=== PATIENT | female | born 1975 | race African-American/Black ===

== ENCOUNTER → 2019-02-01 | Outpatient (CLI) | payer MEDICAID ==
--- NOTE | 2019-02-01 11:00 | WOMENS IMAGING REPORT ---
EXAM DESCRIPTION: BILAT SCREENING MAMMO W/CAD COMPLETED DATE/TIME: 02/01/2019 7:42 am REASON FOR STUDY: ROUTINE BILATERAL SCREENING;Z12.31 Z12.31 ENCNTR SCREEN MAMMOGRAM FOR MALIGNANT N EOPLASM OF MAKENNA COMPARISON: New baseline study EXAM PARAMETERS: Standard craniocaudal and mediolateral oblique views of each breast recorded using digital acquisition. Read with the assistance of CAD. .[facility] - [employer] Restoration Technician Version 9.2 LIMITATIONS: None. FINDINGS: No suspicious masses, suspicious calcifications or architectural distortion. No areas of s uspicion. IMPRESSION: Negative MAMMOGRAM. BIRADS 1 BREAST DENSITY: c. The breasts are heterogeneously dense, which may obscure small masses. BIRAD: ASSESSMENT: 1 NEGATIVE RECOMMENDATION: ROUTINE SCREENING Please consider bilateral screening tomosynthesis in January 2020 given heterogeneously dense tissue celeste aterally COMMENT: The patient has been notified of the results by letter per MQSA requirements. Additional no tification policies are in place for contacting patient with suspicious or incomplete findings. Quality ID #225: The [employer] recommends an annual screening mammogram for women aged 40 years or over. This facility utilizes a reminder system to ensure that all patients receive reminder letters, and/or direct phone calls for appointments. This includes reminders for routine scr eening mammograms, diagnostic mammograms, or other Breast Imaging Interventions when appropriate. Th is patient will be placed in the appropriate reminder system. TECHNICAL DOCUMENTATION: FINDING NUMBER: (1) ASSESSMENT: (1) JOB ID: [id number] [employer]- All Rights Reserved Reading location - IP/workstation name: [email or web address]
== END ==
LOC: WI 07:26
PROVIDERS: ATTEND Family Medicine
DX: Z12.31 Encounter for screening mammogram for malignant neoplasm of breast (principal)
CPT/HCPCS: 77067

== ENCOUNTER → 2020-06-22 | Outpatient (CLI) | payer MEDICAID ==
--- NOTE | 2020-06-22 10:33 | WOMENS IMAGING REPORT ---
EXAM DESCRIPTION: 3D SCREENING MAMMO BILAT IMAGES COMPLETED DATE/TIME: 06/22/2020 7:17 am REASON FOR STUDY: ROUTINE BILATERAL SCREENING;Z12.31 Z12.31 ENCNTR SCREEN MAMMOGRAM FOR MALIGNANT N EOPLASM OF MAKENNA COMPARISON: 2018. EXAM PARAMETERS: Standard craniocaudal and mediolateral oblique views of each breast recorded using digital acquisition and breast tomosynthesis. Read with the assistance of CAD. .[facility] - [employer] Unit Tester Version 9.2 LIMITATIONS: None. FINDINGS: RIGHT BREAST MASSES: Potential mass in the lateral breast lying close to 5 cm from the nipple. This lies the lowe r outer quadrant. CALCIFICATIONS: No new or suspicious calcifications. ARCHITECTURAL DISTORTION: None. ASYMMETRY: None noted. OTHER: No other significant findings. LEFT BREAST MASSES: No suspicious masses. CALCIFICATIONS: No new or suspicious calcifications. ARCHITECTURAL DISTORTION: None. ASYMMETRY: None noted. OTHER: No other significant findings. IMPRESSION: Suspicious for right breast mass. 0 Incomplete: Needs Additional Imaging Evaluation and/or prior Mammograms for Comparison. BREAST DENSITY: c. The breasts are heterogeneously dense, which may obscure small masses. BIRAD: ASSESSMENT: 0 Incomplete: Needs Additional Imaging Evaluation and/or prior Mammograms for C omparison. RECOMMENDATION: RECOMMENDED FOLLOW-UP: Spot compression diagnostic mammography and ultrasound. The patient will be contacted for additional imaging. COMMENT: The patient has been notified of the results by letter per MQSA requirements. Additional no tification policies are in place for contacting patient with suspicious or incomplete findings. Quality ID #225: The [employer] recommends an annual screening mammogram for women aged 40 years or over. This facility utilizes a reminder system to ensure that all patients receive reminder letters, and/or direct phone calls for appointments. This includes reminders for routine scr eening mammograms, diagnostic mammograms, or other Breast Imaging Interventions when appropriate. Th is patient will be placed in the appropriate reminder system. TECHNICAL DOCUMENTATION: FINDING NUMBER: (1) ASSESSMENT: (1) JOB ID: [id number] 2010 [employer]- All Rights Reserved Reading location - IP/workstation name: [email or web address]
--- OUTSIDE RECORDS SUMMARY | 2020-06-25 09:32 | XMS REPORT ---
:1975 Author [facility] [place] [address] [place] [address] Care Team Providers Name Role Phone Bundle Attending Clinician Unavailable Toño Attending Clinician Unavailable Gladis Attending Clinician Unavailable Lauren Attending Clinician Unavailable Allergies, Adverse Reactions, Alerts This patient has no known allergies or adverse reactions. Medications This patient has no known medications. Problems This patient has no known problems. Procedures Procedure Date / Time Performed Performing Clinician Devic e OFFICE/OUTPATIENT VISIT EST 2019-12-08 08:15:00 OFFICE/OUTPATIENT VISIT EST 2019-04-22 16:15:00 OFFICE/OUTPATIENT VISIT EST 2019-03-28 13:30:00 OFFICE/OUTPATIENT VISIT EST 2019-01-12 08:00:00 OFFICE/OUTPATIENT VISIT EST 2019-01-07 14:50:00 SELF PAY NEW OV 2018-06-08 08:30:00 Results Test Description Test Time Test Comments Text Results Atomic Results Result Comments Hemoglobin A1C\S\ 2019-04-22 16:15:00 Test Item Value Reference Range Comments HgbA1C, Fingerstick (test code = 4548-4) 7.2 % 4-5.6 BV/VAGINITIS PANEL DNA [id number] 00:00:00SEE NOTETHINPREP TIS PAP AND HPV mRNA E6/E7, CHLAMYDIA/N.[id number] 00:00:00 Test Item Value Reference Range Comments CLINICAL INFORMATION: (test None given code = 47768677) CHLAMYDIA TRACHOMATIS RNA, NOT DETECTED NOT DETECTED TMA, UROGENITAL (test code = 36325549) SOURCE: (test code = Cervix, Endocervix 16773384) NEISSERIA GONORRHOEAE RNA, NOT DETECTED NOT DETECTED TMA, UROGENITAL (test code = 07957438) PREV. BX: (test code = NONE GIVEN 00149808) INTERPRETATION/RESULT: (test Negative for intraepithelial code = 92797630) lesion or malignancy. COMMENT: (test code = This Pap test has been evaluated 22248640) with computer assisted technology. LMP: (test code = 00391744) 20190305 PREV. PAP: (test code = NONE GIVEN 38865922) HPV mRNA E6/E7 (test code = Not Detected Not Detected 74099681) Hemoglobin A1C\S\2019-01-12 08:00:00 Test Item Value Reference Range Comments HgbA1C, Fingerstick (test code = 4548-4) 8.4 % 4-5.6 URINE CULTURE\S\[id number] 15:10:00 Test Item Value Reference Range Comments GROUP B BETA STREPTOCOCCUS (test code = BTSB) [id number] 09:22:000.76LIPID PANEL WITH REFLEX TO DIRECT [id number] 09:22:00 Test Item Value Reference Range Comments LDL-CHOLESTEROL (test code = 59727056) 66 mg/dL (calc) HDL CHOLESTEROL (test code = 88910414) 37 mg/dL >50 CHOLESTEROL, TOTAL (test code = 19393135) 121 mg/dL <200 NON HDL CHOLESTEROL (test code = 91017127) 84 mg/dL (calc) <130 TRIGLYCERIDES (test code = 74200691) 95 mg/dL <150 CHOL/HDLC RATIO (test code = 53606093) 3.3 (calc) <5.0 CBC (INCLUDES DIFF/PLT)2018-06-08 09:22:00 Test Item Value Reference Range Comments PLATELET COUNT (test code = 66154933) 260 Thousand/uL 140-400 BASOPHILS (test code = 37679525) 0.3 % MCV (test code = 57583942) 82.8 fL 80.0-100.0 MONOCYTES (test code = 49012624) 9.9 % ABSOLUTE BASOPHILS (test code = 16040429) 27 cells/uL 0-200 WHITE BLOOD CELL COUNT (test code = 9.1 Thousand/uL 3.8-10.8 83470631) ABSOLUTE MONOCYTES (test code = 06779699) 901 cells/uL 200-95 0 HEMATOCRIT (test code = 00829168) 34.2 % 35.0-45.0 MCHC (test code = 07667389) 32.5 g/dL 32.0-36.0 ABSOLUTE EOSINOPHILS (test code = 47073832) 137 cells/uL 15-5 00 NEUTROPHILS (test code = 11295959) 67.1 % ABSOLUTE NEUTROPHILS (test code = 15280912) 6106 cells/uL 1500 -7800 MPV (test code = 53240337) 12.7 fL 7.5-12.5 MCH (test code = 10464748) 26.9 pg 27.0-33.0 RDW (test code = 73707068) 13.1 % 11.0-15.0 LYMPHOCYTES (test code = 96464169) 21.2 % RED BLOOD CELL COUNT (test code = 09506937) 4.13 Million/uL 3.80 -5.10 EOSINOPHILS (test code = 39070308) 1.5 % ABSOLUTE LYMPHOCYTES (test code = 43325302) 1929 cells/uL 850- 3900 HEMOGLOBIN (test code = 49584234) 11.1 g/dL 11.7-15.5 MICROALBUMIN, RANDOM URINE (W/CREATININE)2018-06-08 09:22:00 Test Item Value Reference Range Comments MICROALBUMIN/CREATININE RATIO, RANDOM URINE 55 mcg/mg creat <30 (test code = 60304925) CREATININE, RANDOM URINE (test code = 108 mg/dL 20-275 86250105) MICROALBUMIN (test code = 54851849) 5.9 mg/dL COMPREHENSIVE METABOLIC [id number] 09:22:00 Test Item Value Reference Range Comments UREA NITROGEN (BUN) (test code = 10 mg/dL 7-25 68113216) eGFR NON-AFR. [place]ER (test code = 110 mL/min/1.73m2 > OR = 60 52530119) ALBUMIN (test code = 78986887) 4.2 g/dL 3.6-5.1 PROTEIN, TOTAL (test code = 82645769) 7.6 g/dL 6.1-8.1 ALKALINE PHOSPHATASE (test code = 94 U/L 33-115 41234092) BUN/CREATININE RATIO (test code = NOT APPLICABLE (calc) 6-22 98131913) GLOBULIN (test code = 28956061) 3.4 g/dL (calc) 1.9-3.7 eGFR (test code = 128 mL/min/1.73m2 > OR = 60 66082423) CALCIUM (test code = 72099522) 9.2 mg/dL 8.6-10.2 CREATININE (test code = 66770369) 0.66 mg/dL 0.50-1.10 ALBUMIN/GLOBULIN RATIO (test code = 1.2 (calc) 1.0-2.5 77599022) BILIRUBIN, TOTAL (test code = 0.3 mg/dL 0.2-1.2 36559200) SODIUM (test code = 57072856) 136 mmol/L 135-146 POTASSIUM (test code = 84571049) 4.3 mmol/L 3.5-5.3 GLUCOSE (test code = 39009243) 300 mg/dL 65-99 CARBON DIOXIDE (test code = 61081666) 29 mmol/L 20-32 AST (test code = 43920337) 15 U/L 10-30 ALT (test code = 93730059) 20 U/L 6-29 CHLORIDE (test code = 84065121) 97 mmol/L 98-110 Hemoglobin A1C\S\2018-06-08 08:30:00 Test Item Value Reference Range Comments HgbA1C, Fingerstick (test code = 4548-4) 11.7 % 4-5.6 Assessments Condition Name Status Diagnosis Date Treating Clinici an Essential (primary) hypertension Active Hyperlipidemia, unspecified Active Type 2 diabetes mellitus without Active complications group home (current) use of insulin Active Type 2 diabetes mellitus without Active complications assistant terminal manager (current) use of insulin Active Essential (primary) hypertension Active Body mass index (BMI) 28.0-28.9, adult Active 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) w/o Active abn findings Encounter for screening for malignant Active neoplasm of cervix Encntr screen for infections w sexl mode of Active transmiss Body mass index (BMI) 28.0-28.9, adult Active Type 2 diabetes mellitus without Active complications Essential (primary) hypertension Active Left lower quadrant pain Active Nausea with vomiting, unspecified Active Unspecified abdominal pain Active Dysuria Active Cystitis, unspecified without hematuria Active Body mass index (BMI) 28.0-28.9, adult Active Type 2 diabetes mellitus with hyperglycemia Active Essential (primary) hypertension Active Encounter for immunization Active Body mass index (BMI) 30.0-30.9, adult Active Encounters Start End Encounter Admission Attending Care Care Encounter Date/Time Date/Time Type Type Clinicians Facility Department ID 2019-12-08 2019-12-08 Outpatient Bundle, [facility] EC [id number] 08:15:00 08:15:00 [facility] [id number] s [id number] and [id number] [facility], 2019-04-22 2019-04-22 [facility] 57 [id number] 16:15:00 16:15:00 [facility]???[facility] [id number] and [id number] [id number] 2019-03-28 2019-03-28 [facility] EE [id number] 13:30:00 13:30:00 [facility] [id number] and [id number] [facility] [id number] 2019-01-12 2019-01-12 [facility] 08 [id number] 08:00:00 08:00:00 [facility] [id number] s [id number] and [id number] [facility], 2019-01-07 2019-01-07 [facility] [id number] 14:50:00 14:50:00 [facility] [id number] s [id number] and [id number] [facility], 2018-06-08 2018-06-08 [facility] 4 [id number] 08:30:00 08:30:00 [facility] [id number] s [id number] and [id number] [facility] [place] Social History This patient has no known social history. Vital Signs This patient has no known vital signs.
== END ==
LOC: WI 08:08
PROVIDERS: ATTEND Physician Assistant
DX: Z12.31 Encounter for screening mammogram for malignant neoplasm of breast (principal); N63.13 Unspecified lump in the right breast, lower outer quadrant
CPT/HCPCS: 77063; 77067

== ENCOUNTER → 2020-07-03 | Outpatient (CLI) | payer MEDICAID ==
--- NOTE | 2020-07-03 09:00 | WOMENS IMAGING REPORT ---
EXAM DESCRIPTION: RIGHT DIAGNOSTIC MAMMO W/CAD IMAGES COMPLETED DATE/TIME: 07/03/2020 8:28 am REASON FOR STUDY: N63.13 UNSPECIFIED LUMP IN THE RIGHT BREAST, LOWER OUTER QUADRANT N63.13 UNSPECIF IED LUMP IN THE RIGHT BREAST, LOWER OUTER CAIN COMPARISON: 06/22/2020 EXAM PARAMETERS: True lateral and cone compression views. LIMITATIONS: None. FINDINGS: BREAST LATERALITY: right MASSES: No suspicious masses. CALCIFICATIONS: No new or suspicious calcifications. ARCHITECTURAL DISTORTION: None. ASYMMETRY: None noted. OTHER: No other significant findings. IMPRESSION: No evidence of malignancy. BREAST DENSITY: b. There are scattered areas of fibroglandular density. BIRAD: ASSESSMENT: 1 Negative. RECOMMENDATION: RECOMMENDED FOLLOW UP: Birads 1 or 2: The patient should resume routine screening . SPECIFIC INTERVENTION/IMAGING/CONSULTATION RECOMMENDED:No additional intervention/ imaging/consultati on needed at this time. COMMUNICATION:The negative/benign results were communicated to the patient. COMMENT: The patient has been notified of the results by letter per [place] requirements. Additional no tification policies are in place for contacting patient with suspicious or incomplete findings. Quality ID #225: The [employer] recommends an annual screening mammogram for women aged 40 years or over. This facility utilizes a reminder system to ensure that all patients receive reminder letters, and/or direct phone calls for appointments. This includes reminders for routine scr eening mammograms, diagnostic mammograms, or other Breast Imaging Interventions when appropriate. Th is patient will be placed in the appropriate reminder system. TECHNICAL DOCUMENTATION: FINDING NUMBER: (1) ASSESSMENT: (1) JOB ID: [id number] 2010 [employer]- All Rights Reserved Reading location - IP/workstation name: [email or web address]
== END ==
LOC: WI 08:00
PROVIDERS: ATTEND Physician Assistant
DX: R92.2 Inconclusive mammogram (principal)
CPT/HCPCS: 77065